=== PATIENT | female | born 1955 | race Caucasian/White ===

== ENCOUNTER → 2016-12-07 | Outpatient (CLI) | payer OTHER ==
[~2016-12-07] MED LIST: ATORVASTATIN CA10 MG PO; CELEXA20 MG PO; DIPHENHYDRAMINE50 M1 PO; IBUPROFEN800 MG PO; LISINOPRIL10 MG PO; METOPROLOL TART25 MG PO
--- NOTE | ~2016-12-07 | CR172 ---
[facility] A Service of [facility] & [facility] / [facility] RADIOLOGY TEXT RESULTS PATIENT: SHELBY PATEL LOCATION: [facility] : 59 UNIT #: [id number] AGE: [address]: Bonilla Dallas MD SEX: F ORDER DR: [id number] [facility] [address] [place], [place] [address] [id number] O MR#: [id number] Acc #: [id number] NAME: SHELBY PATEL : 1955 SEX: F STUDY DATE/TIME: 12/07/2016 10:52 UNIT: [facility] ROOM: STUDY DESCRIPTION: CR Knee 3 Views Lt Attending Physician: Bonilla Dallas M.D. Referring Physician: Bonilla Dallas M.D. Ordering Physician: Bonilla Dallas M.D. Primary Care Physician: Isamar Camarillo M.D. MEDICAL IMAGING REPORT This report is preliminary unless electronic signature is present EXAM Left knee 3 views HISTORY Neck pain for 2 months. Osteoarthritis. FINDINGS 3 views left knee demonstrate moderately severe degenerative arthritis in the medial compartment with marked medial joint space narrowing and moderate-sized medial joint line marginal osteophyte. Mild degenerative changes in the patellofemoral joint. No fracture or effusion. Generalized demineralization. IMPRESSION 1. Advanced degenerative joint space narrowing medial compartment. 2. Mild degenerative changes in the patellofemoral compartment. Dictated by... Michael Alcazar M.D. THIS IS AN ELECTRONICALLY VERIFIED REPORT Michael Alcazar M.D. at 12/08/2016 11:19 PM DFL/pcl TD: 12/07/2016 20:42 JOB #: [id number] MEDICAL IMAGING REPORT Page 1 of 1 COPY
== END | disposition home or self-care (01) ==
LOC: CRAD 10:36
DX: M17.12 Unilateral primary osteoarthritis, left knee (principal)
CPT/HCPCS: 73562

== ENCOUNTER 2016-12-14 22:56 | Emergency (ER) | payer OTHER | END 2016-12-14 23:32 | disposition home or self-care (01) | LOC: CED 22:56 | DX: R20.2 Paresthesia of skin (principal); I10 Essential (primary) hypertension; Z88.2 Allergy status to sulfonamides; Z79.899 Other long term (current) drug therapy | CPT/HCPCS: 99283 ==

== ENCOUNTER 2017-02-07 14:14 | Emergency (ER) | payer OTHER ==
[~2017-02-07] VITALS: Ht 154.9 cm; Wt 69.4 kg
--- NOTE | ~2017-02-07 | EKG ---
PATIENT: SHELBY PATEL UNIT #: [id number] Ventricular Rate: 54 BPM Atrial Rate: 54 BPM P-R Interval: 154 ms QRS Duration: 86 ms Q-T Interval: 432 ms QTC Calculation(Bezet): 409 ms P Chester: 33 degrees Calculated R Chester: -3 degrees Calculated T Chester: 24 degrees Diagnosis Line: Sinus bradycardia Diagnosis Line: T wave abnormality, consider anterior ischemia Diagnosis Line: Abnormal ECG Diagnosis Line: When compared with ECG of 04-APR-2016 08:19, Diagnosis Line: Left bundle branch block is no longer Present Diagnosis Line: Confirmed by CADE DIOP MD ([id number]) on Diagnosis Line: 02/09/2017 10:50:32 AM INTERPRETING MD: CHIKIS ROCHA
--- NOTE | ~2017-02-07 | CR72 ---
[facility]. [facility] A Service of [facility] & [facility] RADIOLOGY TEXT RESULTS PATIENT: SHELBY PATEL LOCATION: [facility] : 59 UNIT #: [id number] AGE: [address]: Chester Pichardo MD SEX: F ORDER DR: [id number] [facility] [address] [place], [place] [address] [id number] E MR#: [id number] Acc #: [id number] NAME: SHELBY PATEL. : 1955 SEX: F STUDY DATE/TIME: 02/07/2017 14:51 UNIT: [facility] ROOM: STUDY DESCRIPTION: CR Chest Single View Portable Attending Physician: Chester Pichardo M.D. Ordering Physician: Chester Pichardo M.D. Primary Care Physician: Isamar Camarillo M.D. MEDICAL IMAGING REPORT This report is preliminary unless electronic signature is present EXAM Portable chest, 02/07. INDICATIONS Chest pain and shortness of air for 1 week. FINDINGS AP portable chest compared to 02/16/2016. Lungs are clear. Cardiac and mediastinal contours are normal. There is no pneumothorax. IMPRESSION No active disease. Dictated by... Ricardo Poole Jr., M.D. THIS IS AN ELECTRONICALLY VERIFIED REPORT Ricardo Poole Jr., M.D. at 02/08/2017 8:30 AM GREGORIO/tita TD: 02/08/2017 01:36 JOB #: [id number] MEDICAL IMAGING REPORT Page 1 of 1 COPY
[2017-02-07 14:54] LABS: BASOPHIL% 0.7 % (0-2.5); EOSINOPHIL# 0.3 X10e3 (0-0.7); EOSINOPHIL% 5.3 % (0.0-7.0); HEMATOCRIT 37.4 % (35.0-45.0); HEMOGLOBIN 12.9 gm/dL (12.0-16.0); LYMPHOCYTE# 1.5 X10e3 (1.0-3.5); LYMPHOCYTE% 27.1 % (17.0-45.0); MEAN CELL VOLUME 87.3 FL (83-96); MEAN CORPUSCULAR HEMOGLOBIN 30.2 PG (28-34); MEAN CORPUSCULAR HGB CONC 34.5 g/dL (30-36); MEAN PLATELET VOLUME 8.6 FL (6.5-11.5); MONOCYTE# 0.6 X10e3 (0-1.0); MONOCYTE% 10.5 % (3.0-12.0); NEUTROPHIL% 56.4 % (40-75); PLATELET COUNT 199 X10e3 (140-420); RED BLOOD COUNT 4.28 X10e (3.90-5.30); WHITE BLOOD COUNT 5.4 X10e3 (4.0-10.5)
[2017-02-07 14:55] LABS: POC - TROPONIN <0.05 ng/mL (<=0.05)
[2017-02-07 15:04] LABS: DIFF IND NO
[2017-02-07 15:13] LABS: PARTIAL THROMBOPLASTIN TIME 25.6 SECONDS (23.5-31.3)
[2017-02-07 15:18] LABS: PROTHROMBIN TIME (PATIENT) 10.9 SECONDS (10.0-11.7)
[2017-02-07 15:19] LABS: ALBUMIN SERUM 4.7 g/dL (3.5-5.0); BILIRUBIN, DIRECT 0.1 mg/dL (0.0-0.2); BILIRUBIN,INDIRECT 0.4 mg/dL (0.0-0.9); BILIRUBIN,TOTAL 0.5 mg/dL (0.2-2.0); BUN/CREATININE RATIO 23.75; CALCIUM SERUM 9.4 mg/dL (8.4-10.2); CREATININE SERUM 0.8 mg/dL (0.6-1.4); GLOM FILT RATE Estimated 80.8 mL/min (>60); POTASSIUM 4.1 mmol/L (3.5-5.1); PROTEIN TOTAL SERUM 7.5 g/dL (6.0-8.3)
[2017-02-07 16:53] LABS: POC - CKMB 1.9 ng/mL (0.0-7.9); POC - TROPONIN <0.05 ng/mL (<=0.05)
== END 2017-02-07 17:09 | disposition home or self-care (01) ==
LOC: CED 14:14
PROVIDERS: Emergency Medicine
DX: R07.9 Chest pain, unspecified (principal); F41.9 Anxiety disorder, unspecified; Z88.2 Allergy status to sulfonamides; Z79.899 Other long term (current) drug therapy
CPT/HCPCS: 36415; 71010; 80048; 80076; 82553; 84484; 85025; 85610; 85730; 93005; 99285